=== PATIENT | male | born 1945 | race Caucasian/White ===

== ENCOUNTER 2017-08-28 09:00 | Outpatient (CLI) | payer MEDICARE | END 2017-08-28 23:59 | disposition home or self-care (01) | LOC: RT 09:00 | PROVIDERS: ATTEND Internal Medicine Pulmonary Disease | DX: J44.9 Chronic obstructive pulmonary disease, unspecified (principal); E11.9 Type 2 diabetes mellitus without complications; I10 Essential (primary) hypertension; E78.5 Hyperlipidemia, unspecified; Z90.49 Acquired absence of other specified parts of digestive tract; Z90.89 Acquired absence of other organs; Z79.899 Other long term (current) drug therapy | CPT/HCPCS: 94618 ==

== ENCOUNTER 2024-08-13 15:25 | Outpatient (CLI) | payer MEDICARE ==
[~2024-08-13] VITALS: Ht 172.7 cm; Wt 92.5 kg
[2024-08-13] MEDS: albuterol 2.5 MG/3 ML nebule NEB ONE (16:09)
[2024-08-13 16:11] VITALS: PULSE 81; RESP 15; O2SAT 97
[2024-08-13 16:23] VITALS: PULSE 79; RESP 14
== END 2024-08-13 23:59 | disposition home or self-care (01) ==
LOC: RT 15:25
PROVIDERS: ATTEND Internal Medicine Pulmonary Disease
DX: J44.9 Chronic obstructive pulmonary disease, unspecified (principal); E04.2 Nontoxic multinodular goiter
CPT/HCPCS: 94060; 94760